=== PATIENT | male | born 1940 | race Caucasian/White ===

== ENCOUNTER 2023-11-07 13:06 | Outpatient (RCR) | payer MEDICARE, OTHER, SELFPAY | END 2023-11-07 23:59 | disposition home or self-care (01) | LOC: RPT 13:06 | PROVIDERS: ATTENDING PHYSICIAN Student in an Organized Health Care Education/Training Program; FAMILY PHYSICIAN Family Medicine; OTHER PHYSICIAN Orthopaedic Surgery | DX: M25.572 Pain in left ankle and joints of left foot (principal); M25.571 Pain in right ankle and joints of right foot; M76.829 Posterior tibial tendinitis, unspecified leg; M71.22 Synovial cyst of popliteal space [Baker], left knee; Z73.6 Limitation of activities due to disability | CPT/HCPCS: 97110; 97112 ==

== ENCOUNTER 2023-12-01 12:55 | Outpatient (RCR) | payer MEDICARE, OTHER, SELFPAY | END 2023-12-01 23:59 | disposition home or self-care (01) | LOC: RPT 12:55 | PROVIDERS: ATTENDING PHYSICIAN Student in an Organized Health Care Education/Training Program; FAMILY PHYSICIAN Family Medicine; OTHER PHYSICIAN Orthopaedic Surgery | DX: M25.572 Pain in left ankle and joints of left foot (principal); M25.571 Pain in right ankle and joints of right foot; M71.22 Synovial cyst of popliteal space [Baker], left knee; Z96.652 Presence of left artificial knee joint; Z73.6 Limitation of activities due to disability | CPT/HCPCS: 97110; 97112 ==

== ENCOUNTER 2023-12-29 12:53 | Outpatient (RCR) | payer MEDICARE, OTHER, SELFPAY | END 2023-12-29 14:55 | disposition home or self-care (01) | LOC: RPT 12:53 | PROVIDERS: ATTENDING PHYSICIAN Student in an Organized Health Care Education/Training Program; FAMILY PHYSICIAN Family Medicine; OTHER PHYSICIAN Orthopaedic Surgery | DX: M25.572 Pain in left ankle and joints of left foot (principal); M25.571 Pain in right ankle and joints of right foot; M71.22 Synovial cyst of popliteal space [Baker], left knee; Z73.6 Limitation of activities due to disability | CPT/HCPCS: 97110; 97112 ==

== ENCOUNTER → 2024-01-04 10:26 | Outpatient (REF) | payer MEDICARE, OTHER, SELFPAY | LOC: DHCBS MAIN 10:26 | PROVIDERS: ATTENDING PHYSICIAN Internal Medicine Cardiovascular Disease; FAMILY PHYSICIAN Family Medicine | DX: R06.09 Other forms of dyspnea (principal) | CPT/HCPCS: 93306 ==

== ENCOUNTER → 2024-01-31 11:08 | Outpatient (REF) | payer MEDICARE, OTHER, SELFPAY ==
[2024-01-31 13:09] LABS: Blood Urea Nitrogen 20 mg/dl (9-20); Carbon Dioxide 28 mmol/L (22-30); Chloride 102 mmol/L (98-107); Glucose 104 mg/dl (70-99); Potassium 4.5 mmol/L (3.5-5.1); Sodium 138 mmol/L (135-145); eGFR > 60.00
[2024-01-31 13:34] LABS: PSA, Total - Diagnostic < 0.06 ng/ml (0.0-4.0)
[2024-01-31 13:36] LABS: Testosterone, Total 12.4 ng/dl (72-623)
== END ==
LOC: REG 11:08
PROVIDERS: ATTENDING PHYSICIAN Physician Assistant Medical; FAMILY PHYSICIAN Family Medicine; OTHER PHYSICIAN Radiology Radiation Oncology
DX: R35.81 Nocturnal polyuria (principal); C61 Malignant neoplasm of prostate
CPT/HCPCS: 36415; 80048; 84153; 84403

== ENCOUNTER → 2024-03-16 08:32 | Outpatient (REF) | payer MEDICARE, OTHER, SELFPAY ==
[2024-03-16 09:23] LABS: % Basophils 0.9 % (0-2); % Eosinophils 5.3 % (0-6); % Immature Granulocytes 0.2 % (0-0.5); % Monocytes 11.5 % (1.7-9.3); % Neutrophils 52.1 % (42.2-75.2); Absolute Eosinophils 0.2 10^3/uL (0-0.7); Absolute Lymphocytes 1.3 10^3/uL (1.2-3.4); Absolute Monocytes 0.5 10^3/uL (0.1-0.6); Absolute Neutrophils 2.3 10^3/uL (1.4-6.5); Hematocrit 39.7 % (39.0-52.0); Hemoglobin 13.8 g/dL (13.0-18.0); Mean Corp Hgb Conc. 34.8 g/dL (33.0-37.0); Mean Corpuscular Hgb 32.4 pg (27.0-31.0); Mean Corpuscular Volume 93.2 fL (80.0-94.0); Mean Platelet Volume 9.2 fL (7.4-10.4); Nucleated Red Blood Cells % 0 % (-); Platelet Count 194 10^3/uL (130-400); Red Blood Cell Count 4.26 10^6/uL (4.70-6.10); Red Cell Dist. Width 12.8 % (11.5-14.5); White Blood Cell Count 4.3 10^3/uL (4.8-10.8)
[2024-03-16 09:55] LABS: ALT (SGPT) 24 U/L (0-50); AST (SGOT) 29 U/L (17-59); Albumin 4.4 g/dl (3.5-5.0); Alkaline Phosphatase 68 U/L (38-126); Blood Urea Nitrogen 27 mg/dl (9-20); Calcium 9.9 mg/dl (8.4-10.2); Carbon Dioxide 26 mmol/L (22-30); Chloride 105 mmol/L (98-107); Glucose 113 mg/dl (70-99); HDL Cholesterol 42 mg/dl; LDL Cholesterol, Calculated 90 mg/dl; Potassium 4.7 mmol/L (3.5-5.1); Sodium 140 mmol/L (135-145); Total Bilirubin 0.9 mg/dl (0.2-1.3); Total Cholesterol 157 mg/dl (50-199); Total Protein 6.8 g/dl (6.3-8.2); Triglyceride 128 mg/dl (10-149); Very Low Density Lipoprotein 25 mg/dl (0-30); eGFR > 60.00
== END ==
LOC: REG 08:32
PROVIDERS: ATTENDING PHYSICIAN Family Medicine; OTHER PHYSICIAN Radiology Radiation Oncology; REFERRING PHYSICIAN Internal Medicine Cardiovascular Disease
DX: E78.2 Mixed hyperlipidemia (principal); I10 Essential (primary) hypertension; Z85.528 Personal history of other malignant neoplasm of kidney; C61 Malignant neoplasm of prostate; Z00.01 Encounter for general adult medical examination with abnormal findings
CPT/HCPCS: 36415; 80053; 80061; 85025

== ENCOUNTER → 2024-05-02 12:16 | Outpatient (REF) | payer MEDICARE, OTHER, SELFPAY ==
[2024-05-02 14:11] LABS: TSH 1.05 uIU/ml (0.47-4.68)
== END ==
LOC: REG 12:16
PROVIDERS: ATTENDING PHYSICIAN Internal Medicine; FAMILY PHYSICIAN Family Medicine; OTHER PHYSICIAN Radiology Radiation Oncology; OTHER PHYSICIAN Urology; REFERRING PHYSICIAN Internal Medicine Cardiovascular Disease
DX: Z91.89 Other specified personal risk factors, not elsewhere classified (principal); R00.1 Bradycardia, unspecified
CPT/HCPCS: 36415; 84443

== ENCOUNTER → 2024-05-22 11:25 | Outpatient (REF) | payer MEDICARE, OTHER, SELFPAY ==
[2024-05-22 13:27] LABS: PSA, Total - Diagnostic < 0.06 ng/ml (0.0-4.0)
[2024-05-22 13:29] LABS: Testosterone, Total 25.5 ng/dl (72-623)
== END ==
LOC: REG 11:25
PROVIDERS: ATTENDING PHYSICIAN Radiology Radiation Oncology; FAMILY PHYSICIAN Family Medicine
DX: C61 Malignant neoplasm of prostate (principal)
CPT/HCPCS: 36415; 84153; 84403

== ENCOUNTER → 2024-05-23 16:24 | Outpatient (REF) | payer MEDICARE, OTHER, SELFPAY ==
[2024-05-23 22:03] LABS: Urine Albumin 1+ (Neg - Trace); Urine Bilirubin Negative (Negative); Urine Character Slightly Cloudy (Clear); Urine Color Yellow; Urine Glucose Negative (Negative); Urine Ketone Trace (Negative); Urine Leukocyte Trace (Negative); Urine Nitrite Positive (Negative); Urine Occult Blood 4+ (Negative); Urine Specific Gravity 1.025 (<1.030); Urine Urobilinogen 1+ (Neg - 1+)
[2024-05-23 22:08] LABS: Urine Squamous Cell 0-2 /LPF (Few)
[2024-05-23 22:09] LABS: Urine Calcium Oxalate Crystals Present; Urine Red Blood Cell 30-40 /HPF (0-2); Urine White Cell 0-2 /HPF (0-5)
[2024-05-23 22:10] LABS: Urine Bacteria Few (Negative)
== END ==
LOC: REG 16:24
PROVIDERS: ATTENDING PHYSICIAN Urology; FAMILY PHYSICIAN Family Medicine
DX: R31.9 Hematuria, unspecified (principal)
CPT/HCPCS: 81003; 81015; 87086

== ENCOUNTER → 2024-06-06 11:00 | Outpatient (REF) | payer MEDICARE, OTHER, SELFPAY | LOC: RAD 11:00 | PROVIDERS: ATTENDING PHYSICIAN Family Medicine; OTHER PHYSICIAN Internal Medicine; OTHER PHYSICIAN Urology; REFERRING PHYSICIAN Radiology Radiation Oncology | DX: R05.3 Chronic cough (principal) | CPT/HCPCS: 71046 ==

== ENCOUNTER → 2024-08-17 11:08 | Outpatient (REF) | payer MEDICARE, OTHER, SELFPAY ==
[2024-08-17 13:23] LABS: PSA, Total - Diagnostic < 0.06 ng/ml (0.0-4.0)
== END ==
LOC: REG 11:08
PROVIDERS: ATTENDING PHYSICIAN Radiology Radiation Oncology; FAMILY PHYSICIAN Family Medicine
DX: C61 Malignant neoplasm of prostate (principal)
CPT/HCPCS: 36415; 84153; 84403

== ENCOUNTER → 2025-02-04 10:12 | Outpatient (REF) | payer MEDICARE, OTHER, SELFPAY ==
[2025-02-04 12:48] LABS: PSA, Total - Diagnostic < 0.06 ng/ml (0.0-4.0)
== END ==
LOC: REG 10:12
PROVIDERS: ATTENDING PHYSICIAN Physician Assistant; FAMILY PHYSICIAN Family Medicine
DX: C61 Malignant neoplasm of prostate (principal)
CPT/HCPCS: 36415; 84153

== ENCOUNTER → 2025-08-15 08:39 | Outpatient (REF) | payer MEDICARE, OTHER, SELFPAY ==
[2025-08-15 12:53] LABS: PSA, Total - Diagnostic < 0.06 ng/ml (0.0-4.0)
== END ==
LOC: REG 08:39
PROVIDERS: ATTENDING PHYSICIAN Radiology Radiation Oncology; FAMILY PHYSICIAN Family Medicine
DX: C61 Malignant neoplasm of prostate (principal)
CPT/HCPCS: 36415; 84153; 84270; 84402; 84403

== ENCOUNTER 2025-09-06 11:12 | Emergency (ER) | payer MEDICARE, OTHER, SELFPAY ==
[2025-09-06 11:17] VITALS: BP 174/99
[2025-09-06 11:44] LABS: Hematocrit 42.2 % (39.0-52.0); Hemoglobin 14.6 g/dL (13.0-18.0); Mean Corp Hgb Conc. 34.6 g/dL (33.0-37.0); Mean Corpuscular Volume 94.0 fL (80.0-94.0); Nucleated Red Blood Cells % 0 % (-); Platelet Count 175 10^3/uL (130-400); Red Cell Dist. Width 12.8 % (11.5-14.5)
[2025-09-06 11:59] LABS: ALT (SGPT) 20 U/L (0-50); AST (SGOT) 23 U/L (17-59); Albumin 4.6 g/dl (3.5-5.0); Alkaline Phosphatase 54 U/L (38-126); Blood Urea Nitrogen 21 mg/dl (9-20); Calcium 9.3 mg/dl (8.4-10.2); Carbon Dioxide 27 mmol/L (22-30); Chloride 106 mmol/L (98-107); Glucose 110 mg/dl (70-99); Lipase 31 U/L (23-300); Potassium 4.1 mmol/L (3.5-5.1); Sodium 138 mmol/L (135-145); Total Protein 7.1 g/dl (6.3-8.2); eGFR > 60.00
--- NOTE | 2025-09-06 14:31 | ED.GENMED ---
History of Present Illness
General
Chief Complaint: Flank Pain
Source: patient
Exam Limitations: none
Time Seen by Provider: 09/06/25 13:25
History of Present Illness
History of Present Illness:
84-year-old male with weeks of right mid back pain on and off. Seems positional at times. Describes it is worse with certain twisting turning bending. No pleuritic pain. No shortness of breath. No chest pain. Also developed some right flank
and abdominal symptoms. Seen today by the primary physician who recommended ER evaluation.
Past History
Past History
ED Past Medical History: HTN and Hypercholesterolemia
ED Past Surgical History: Other (Nasal surgery, partial right nephrectomy)
Social History
Tobacco: Non-smoker
Alcohol: None
Drug: None
Review of Systems
Review of Systems
All Other Systems: Not applicable
Constitutional: Denies fever or chills
Respiratory: Reports no symptoms
Cardiac: Reports no symptoms
Phy Exam
Physical Exam
Physical Exam:
GENERAL: Alert and oriented in no apparent distress. On initial evaluation was sitting in a chair nontoxic
EYE: Orbits normal.
NECK: Supple
CARDIAC: Regular rate and rhythm without any obvious murmurs.
LUNGS: Clear breath sounds,normal
ABDOMEN: Soft, no rebound or guarding no mass or hernia. Specifically no right upper quadrant tenderness. Minimal right lower quadrant tenderness. Some mild right CVA tenderness. No rash or vesicles.
NEUROLOGICAL: Alert and oriented , grossly non-focal. Gait normal
SKIN: Warm and dry, no rash or lesion, no discoloration, skin intact.
MUSCULOSKELETAL: No edema,no deformity.Good color
PSYCH: Normal and appropriate interaction.
Course
Orders/Labs/Results
Orders:
Orders
09/06/25 11:33
Complete Blood Count/With Diff Urgent
Comprehensive Metabolic Panel Urgent
Lipase Urgent
09/06/25 13:40
CT Abd/Pel (IV only)-DH only Urgent
Comment:
Reason For Exam: ruq/rlq tender
US Abdomen Limited Urgent
Comment:
Reason For Exam: ruq pain
09/06/25 14:36
Urinalysis Reflex To Culture Urgent
Date Specimen was Collected: 09/06/25
Time Specimen was Collected: 14:33
Urine Microscopic Reflex Cult Urgent
Abnormal Lab Results
09/06/25 09/06/25
11:33 14:36
WBC 4.7 L 10^3/uL
(4.8-10.8)
RBC 4.49 L 10^6/uL
(4.70-6.10)
MCH 32.5 H pg
(27.0-31.0)
Monocytes % 11.6 H %
(1.7-9.3)
BUN 21 H mg/dl
(9-20)
Glucose 110 H mg/dl
(70-99)
Ur Occult Blood Reflex 3+ A
(Negative)
Urine RBC 30-40 A /HPF
(0-2)
Urine Bacteria (Reflex) Few A
(Negative)
Urine Albumin (Reflex) 2+ A
(Neg - Trace)
09/06/25 11:33
09/06/25 11:33
Vital Signs
Initial and Last Documented VS:
Initial Vital Signs
Temp Pulse Resp BP Pulse Ox
97.6 F 67 18 174/99 98
09/06/25 11:17 09/06/25 11:17 09/06/25 11:17 09/06/25 11:17 09/06/25 11:17
Last Documented Vital Signs
Temp Pulse Resp BP Pulse Ox
97.6 F 67 18 174/99 98
09/06/25 11:17 09/06/25 11:17 09/06/25 11:17 09/06/25 11:17 09/06/25 14:33
MDM/Problems Addressed
Differential Diagnosis Includes:
Patient with ongoing right flank back pain. Some right lower quadrant tenderness. Differential would include kidney stone/kidney infection/appendicitis. Doubt gallbladder. Has no true right upper quadrant tenderness. Possible musculoskeletal.
Highly doubt PE or any cardiac issues. Workup in progress
*Radiology
Radiology exam reviewed: radiology read reviewed (Negative ultrasound. CT with no acute findings. Incidental findings explained)
*Pulse Oximetry
SaO2: 98
Oxygen Mode of Delivery: Room air
Patient hypoxic: no
*Critical Care Note
Total Time (30-74mins, 75-104mins- exclusive of procedures): Not Applicable
Data Reviewed
Review of Other/Old Records Reveals: Labs, Records and Testing
Update Note
Update Note:
No serious etiology for patient's symptoms. Copy of CT report given to patient to follow-up with his skirt trimmer. Also stressed follow-up for the microscopic hematuria. Symptomatic treatment and follow-up
ED Attending Note
-
Portions of this chart may have been created with voice recognition software.� Occasional wrong word or��sound alike� substitutions may have occurred due to the inherent limitations of voice recognition software.
Discharge Plan
Departure
Patient Disposition: Home (Routine Discharge)
Date of Disposition: 09/06/25
Time of Disposition: 16:16
Patient with high blood pressure during this ER visit?: Yes
Discharge Problem:
Right flank/back pain, Incidental coronary calcifications, Microscopic hematuria
Instructions: Flank Pain (DC), BLOOD PRESSURE
Prescriptions:
No Action
ascorbic acid (vitamin C) [C-500] 500 MG tablet,chewable
500 mg PO DAILY
simvastatin 20 MG tablet
20 mg PO HS
Vitamin B6
100 mg PO BID
multivitamin Tablet
1 tab PO DAILY
glucosamine sulfate [Glucosamine] 500 mg Tablet
500 mg PO BID
beta carotene 30 mg Capsule
500 mg PO DAILY
tamsulosin 0.4 mg Capsule
0.4 mg PO BID
oxybutynin chloride 5 mg Tablet
5 mg PO BID
finasteride 5 mg Tablet
5 mg PO DAILY
cholecalciferol (vitamin D3) [Vitamin D3] 125 mcg (5,000 unit) Tablet
125 mcg PO DAILY
turmeric 400 mg Capsule
800 mg PO BID
[place] 3
300 mg PO BID
cider [id number]
600 mg PO BID
mupirocin 2 % ointment
1 applic intranasal BID Qty: 1 0RF
aspirin 325 mg Tablet
325 mg PO DAILY Qty: 30 0RF
Rx Instructions:
Take daily x4 weeks for blood clot prevention.
celecoxib 200 mg Capsule
200 mg PO DAILY Qty: 30 0RF
Rx Instructions:
Take with food.
Do not take within 2 hours of Aspirin.
sennosides [senna] 8.6 mg Tablet
17.2 mg PO BID Qty: 30 0RF
docusate sodium 100 mg Capsule
100 mg PO BID Qty: 30 0RF
gabapentin 100 mg Capsule
200 mg PO TID Qty: 30 0RF
oxycodone 5 mg tablet
5 mg PO Q6H PRN (Reason: moderate-severe pain) Qty: 30 0RF
Rx Instructions:
1 tab for moderate pain, 2 if severe.
Dx total joint. Ongoing therapy.
famotidine [Pepcid] 20 mg tablet
20 mg PO HS Qty: 30 0RF
Rx Instructions:
Take nightly while on Celebrex.
ondansetron 4 mg tablet,disintegrating
4 mg PO Q6H PRN (Reason: nausea and vomiting) Qty: 20 0RF
Rx Instructions:
Take 1/2 hour prior to oxycodone if experiencing recurrent nausea.
acetaminophen [Acetaminophen Extra Strength] 500 mg tablet
1,000 mg PO Q6H Qty: 30 0RF
Rx Instructions:
DO NOT exceed >4000 mg daily.
polyethylene glycol 3350 [Miralax] 17 gram powder in packet
17 g PO DAILY Qty: 14 0RF
valsartan 80 MG tablet
160 mg PO QPM Qty: 1 0RF
Rx Instructions:
HOLD if systolic blood pressure <130 while on Oxycodone.
amlodipine 2.5 mg Tablet
5 mg PO QPM Qty: 1 0RF
Rx Instructions:
HOLD if systolic blood pressure <130 while on Oxycodone.
Referrals:
Norman Whalen MD [Family Provider, Family Practice] - Follow up in 2-3 days
Activity Restrictions/Additional Instructions:
Follow-up your hematuria with your urologist.
Follow-up the coronary calcifications with your skirt trimmer.
Interventions
Interventions:
*Risk Screen - Suicide Last Done: 09/06/25 11:17
*General Assessment Last Done: 09/06/25 11:17
*Neglect/Abuse Screening Last Done: 09/06/25 14:48
*ED- Fall Risk Assessment Last Done: 09/06/25 14:48
*ED COVID-19 Vaccine History Last Done: 09/06/25 14:48
*ED Influenza Vaccine History Last Done: 09/06/25 11:17
FB-Sbnssk-Rxaorhfivu Assessment Last Done: 09/06/25 14:47
ED-Male Genitourinary Assessment Last Done: 09/06/25 14:47
Discharge Date and Time
Print Language: [id number]
[2025-09-06 14:52] LABS: Urine Character Clear (Clear)
[2025-09-06 15:15] LABS: Urine Red Blood Cell 30-40 /HPF (0-2); Urine Squamous Cell 0-2 /LPF (Few)
[2025-09-06 15:16] LABS: Urine White Cell 0-2 /HPF (0-5)
== END 2025-09-06 16:34 | disposition home or self-care (01) ==
LOC: EMR 11:12
PROVIDERS: EMERGENCY PHYSICIAN Emergency Medicine; FAMILY PHYSICIAN Family Medicine
DX: R10.A1 Flank pain, right side (principal); M54.9 Dorsalgia, unspecified; I25.10 Atherosclerotic heart disease of native coronary artery without angina pectoris; R31.29 Other microscopic hematuria; I10 Essential (primary) hypertension; E78.00 Pure hypercholesterolemia, unspecified; Z90.5 Acquired absence of kidney
CPT/HCPCS: 99284; 74177; 76705; 80053; 81003; 81015; 83690; 85025; Q9967